=== PATIENT | female | born 1930 | race Caucasian/White ===

== ENCOUNTER 2018-01-10 18:54 | Observation (INO) | payer MEDICARE, BC ==
--- NOTE | 2018-01-10 19:29 | Emergency Department Record ---
History of Present Illness - General Chief Complaint: Abdominal Pain Stated Complaint: ABD PAIN Time Seen by Provider: 01/10/18 19:28 Source: Patient Mode of Arrival: Ambulatory Limitations: No limitations - History of Present Illness Initial Comments: 87 yo female presents with one and a half weeks of abdominal pain in the upper abdomen. The pain is fairly constant. She has been seen twice in the ER at [facility]. She reports she had a normal CT scan. No vomiting or diarrhea. She is being treated for sciatica as well with a new addition of [place]. No blood in the stools. No fever or chest pain. No pain straight through the back. PCP is at [facility]. She was admitted additionally for a TIA work up this week as well for 2 days. She had an MRI at that time for inability to speak. This was short lived and never returned. She has noticed some pain after eating. MD Complaint: Abdominal pain Location: Epigastric Radiation: Epigastric Migration to: Epigastric Severity: Moderate Quality: Aching Consistency: Constant Improves With: Nothing Worsens With: Nothing - Related Data Home Medications Medication Instructions Recorded Confirmed Last Taken Atorvastatin Calcium [Lipitor] 20 mg PO DAILY 01/10/18 01/10/18 Unknown Hydrocodone/Acetaminophen [[place] 1 tab PO Q6H PRN 01/10/18 01/10/18 01/10/18 5mg/325mg] Metoprolol Succinate [Toprol Xl] 50 mg PO DAILY 01/10/18 01/10/18 Unknown Multivitamin [Daily Multiple 1 each PO DAILY 01/10/18 01/10/18 Unknown Vitamin] Warfarin Sodium [Coumadin] 2.5 mg PO DAILY 01/10/18 01/10/18 Unknown Warfarin Sodium [Coumadin] 5 mg PO ASDIR 01/10/18 01/10/18 Unknown Allergies Allergy/AdvReac Type Severity Reaction Status Date / Time aspirin Allergy PT UNSURE Verified 01/10/18 19:24 OF REACTION Penicillins Allergy RASH Verified 01/10/18 19:24 Sulfa (Sulfonamide Allergy RASH Verified 01/10/18 19:24 Antibiotics) Review of Systems Constitutional: Denies: Chills, Fever, Malaise, Weakness Eyes: Denies: Eye discharge ENT: Denies: Congestion, Ear pain, Epistaxis, Throat pain Respiratory: Denies: Cough, Dyspnea, Hemoptysis, Stridor Cardiovascular: Denies: Chest pain, Palpitations, Syncope Endocrine: Denies: Fatigue Gastrointestinal: Reports: As per HPI, Abdominal pain, Constipation, Nausea. Denies: Diarrhea, Hematemesis, Hematochezia, Melena, Vomiting Genitourinary: Denies: Dysuria, Urgency Musculoskeletal: Reports: Back pain (sciatica). Denies: Joint swelling, Myalgia , Neck pain Skin: Denies: Bruising, Change in color, Rash Neurological: Denies: Headache, Numbness, Tremors, Vertigo, Weakness Psychiatric: Denies: Anxiety Hematological/Lymphatic: Denies: Blood Clots, Easy bleeding, Easy bruising, Swollen glands Physical Exam - General General Appearance: Alert, Oriented x3, Cooperative, No acute distress Limitations: No limitations - Head Head exam: Atraumatic, Normal inspection - Eye Eye exam: Normal appearance, PERRL. negative: Conjunctival injection, Periorbital swelling, Scleral icterus - ENT ENT exam: Normal exam, Mucous membranes moist Ear exam: Normal external inspection Nasal Exam: Normal inspection Mouth exam: Normal external inspection Teeth exam: Normal inspection Throat exam: Normal inspection - Neck Neck exam: Normal inspection, Full ROM. negative: Tenderness - Respiratory Respiratory exam: Normal lung sounds bilaterally. negative: Respiratory distress - Cardiovascular Cardiovascular Exam: Regular rate, Normal rhythm, Normal heart sounds - GI/Abdominal GI/Abdominal exam: Soft, Normal bowel sounds, Tenderness (mild tenderness in the epigastric area, soft). negative: Diminished bowel sounds, Distended, Guarding, Hyperactive bowel sounds, Pulsatile mass, Rebound, Rigid - Rectal Rectal exam: Deferred - exam: Deferred - Extremities Extremities exam: Normal inspection, Full ROM, Normal capillary refill. negative: Tenderness - Back Back exam: Reports: Normal inspection, Full ROM. Denies: CVA tenderness (R), CVA tenderness (L), Muscle spasm, Rash noted, Tenderness - Neurological Neurological exam: Alert, Normal gait, Oriented X3 - Psychiatric Psychiatric exam: Normal affect, Normal mood. negative: Agitated, Anxious - Skin Skin exam: Dry, Intact, Normal color, Warm Course - Reevaluation(s) Reevaluation #1: 01/10/18 20:[address] of the abdomen and pelvis were reviewed. She has gallstones otherwise diverticulosis without divertivulitis, L5 compression fracture. 01/10/18 20:30 The CBC was reviewed No acute changes The CMP was normal accept the alk phos was 106. No LFT's and Bili. UA is negative We discussed the CT scan and possible gall bladder as a source for her pain 01/10/18 21:[address] with gall stones and recurrent pain with eating the patient will be placed in observation for US tomorrow. I JONATHAN Smith. He will be available for consultation if needed after the US. Medical Decision Making - Lab Data Result diagrams: 01/10/18 19:50 01/10/18 19:50 Disposition Disposition: Admit Clinical Impression: Gallstones Abdominal pain Qualifiers: Abdominal location: unspecified location Qualified Code(s): R10.9 - Unspecified abdominal pain Disposition: Still a Patient at [facility] Decision to Admit: Admit from ER Decision to Admit Date: 01/10/18 Decision to Admit Time: 22:00 Condition: (2) Stable Time of Disposition: 00:19 Quality - Quality Measures Quality Measures: N/A - Blood Pressure Screening Does Patient Have Any of the Following: Active Dx of HTN Blood Pressure Classification: Hypertensive [place] Systolic Measurement: 149 Diastolic Measurement: 97 Screening for High Blood Pressure: Patient Exclusion, Hx of HTN [[id number]]
[2018-01-10] MEDS ORDERED: SODIUM CHLORIDE 0.9% 500 ML IV ONE (19:43)
[2018-01-10] MEDS ORDERED: PANTOPRAZOLE SODIUM IV 40 MG VIAL IVP ONE (19:43)
[2018-01-10 20:03] LABS: BASO % 0.1 % (0-6); HEMATOCRIT 42.8 % (35.0-47.0); HEMOGLOBIN 14.1 gm/dl (11.6-16.0); LYMPH % 24.9 % (16-45); MEAN CELL VOLUME 94.5 fl (81-97); MEAN CORPUSCULAR HEMOGLOBIN 31.1 pg (27-33); MEAN CORPUSCULAR HGB CONC 32.9 g/dl (32-36); MEAN PLATELET VOLUME 10.4 fl (7.4-10.4); PLATELET COUNT 208 K/uL (130-400); RED BLOOD COUNT 4.53 M/uL (3.80-5.40); RED CELL DISTRIBUTION WIDTH 13.4 % (11.5-14.5); URINE APPEARANCE CLEAR; URINE BILIRUBIN NEGATIVE (NEGATIVE); URINE BLOOD SMALL (NEGATIVE); URINE COLOR YELLOW; URINE GLUCOSE (UA) NEGATIVE (NEGATIVE); URINE KETONE NEGATIVE (NEGATIVE); URINE LEUKOCYTE ESTERASE NEGATIVE (NEGATIVE); URINE NITRITE NEGATIVE (NEGATIVE); URINE PROTEIN NEGATIVE (NEGATIVE); URINE UROBILINOGEN 0.2 E.U./dL (0.20 - 1.00); WHITE BLOOD COUNT W/O DIFF 6.8 K/uL (4.2-12.2)
[2018-01-10 20:13] LABS: URINE BACTERIA RARE; URINE RBC 0 - 2 (NONE SEEN); URINE WBC 0 - 2 (0-2/hpf)
[2018-01-10 20:14] LABS: INR 1.8; PARTIAL THROMBOPLASTIN TIME 39.9 SECONDS (24.5-39.1); PROTHROMBIN TIME (PATIENT) 19.5 SECONDS (9.5-12.1)
[2018-01-10 20:15] LABS: BLOOD UREA NITROGEN 26 mg/dL (8-23); CREATININE 0.9 mg/dL (0.5-0.9); EST GLOMERULAR FILTRATION RATE > 60 mL/min
[2018-01-10 20:18] LABS: GLUCOSE,RANDOM 109 mg/dL (74-109)
[2018-01-10 20:21] LABS: ALB/GLOB RATIO 1.5 (1.1-1.8); ALBUMIN 4.2 g/dL (4.0-5.0); ALKALINE PHOSPHATASE 108 U/L (35-104); ALT/SGPT 21 U/L (<33); AST/SGOT 19 U/L (10.0-35.0); LIPASE 44 U/L (13-60)
[2018-01-10] MEDS ORDERED: ONDANSETRON HCL IV 4 MG/2 ML VIAL IVP PRN (22:37)
[2018-01-10] MEDS ORDERED: MORPHINE SULFATE 5 MG/ML PFS IM PRN (22:37)
[2018-01-10] MEDS ORDERED: 0.9 % SODIUM CHLORIDE 1000ML 1,000 ML IV PRN (22:37)
[2018-01-10] MEDS ORDERED: HYDROCODONE/APAP 5/325MG TABLET PO ONE (22:38)
[2018-01-11] MEDS ORDERED: DIPHENHYDRAMINE HCL 25 MG CAPSULE PO PRN (02:19)
[2018-01-11] MEDS: MORPHINE SULFATE 5 MG/ML PFS IVP PRN ×2 (04:54→11:16)
[2018-01-11 05:10] LABS: URINE APPEARANCE CLEAR; URINE BILIRUBIN NEGATIVE (NEGATIVE); URINE BLOOD TRACE-I (NEGATIVE); URINE COLOR YELLOW; URINE GLUCOSE (UA) NEGATIVE (NEGATIVE); URINE KETONE NEGATIVE (NEGATIVE); URINE LEUKOCYTE ESTERASE NEGATIVE (NEGATIVE); URINE NITRITE NEGATIVE (NEGATIVE); URINE PROTEIN NEGATIVE (NEGATIVE); URINE UROBILINOGEN 0.2 E.U./dL (0.20 - 1.00)
[2018-01-11 05:19] LABS: URINE RBC 0 - 2 (NONE SEEN); URINE WBC 0 - 2 (0-2/hpf)
[2018-01-11 06:20] LABS: BASO % 0.2 % (0-6); GRAN % 58.7 % (47-80); HEMATOCRIT 40.7 % (35.0-47.0); HEMOGLOBIN 13.4 gm/dl (11.6-16.0); LYMPH % 30.1 % (16-45); MEAN CELL VOLUME 94.7 fl (81-97); MEAN CORPUSCULAR HEMOGLOBIN 31.2 pg (27-33); MEAN CORPUSCULAR HGB CONC 32.9 g/dl (32-36); MEAN PLATELET VOLUME 10.2 fl (7.4-10.4); PLATELET COUNT 176 K/uL (130-400); RED CELL DISTRIBUTION WIDTH 13.3 % (11.5-14.5)
[2018-01-11 06:28] LABS: INR 1.9; PROTHROMBIN TIME (PATIENT) 20.4 SECONDS (9.5-12.1)
[2018-01-11 06:37] LABS: ALB/GLOB RATIO 1.3 (1.1-1.8); ALBUMIN 3.5 g/dL (4.0-5.0); ALKALINE PHOSPHATASE 84 U/L (35-104); ALT/SGPT 18 U/L (<33); AST/SGOT 17 U/L (10.0-35.0); BLOOD UREA NITROGEN 20 mg/dL (8-23); CREATININE 0.7 mg/dL (0.5-0.9); EST GLOMERULAR FILTRATION RATE > 60 mL/min; GLUCOSE,RANDOM 91 mg/dL (74-109); TOTAL PROTEIN 6.1 g/dL (6.6-8.7)
--- NOTE | 2018-01-11 07:34 | History & Physical ---
History of Present Illness - Date of Service Date of Service for History & Physical: 01/11/18 - History of Present Illness Admitting Diagnosis: abdominal pain with gallstones History of Present Illness: 87yo female with CC of upper abdominal pain. She has history of Afib anticoagulated on coumadin, hld, gout, TIA, and sciatica. patient presented to our ED with one and a half weeks of upper abdominal pain. She says she had initially gone ot [facility] on 01/02/18 for the pain which she said was unlike anything she had ever felt. She says it seemed to affect the entire upper abdomen and she described it as a constant sharp pain that made her feel nauseated. When she went to the ED at [facility], they gave her a dose of narcan which she says made everything much worse. She had loose stool after that and increased pain. she had a CT scan done at that time that showed cholelithiasis but no other acute process. She was sent home but returned last night because her pain was intolerable. While in our ED, she had temp of 97.9, bp of 149/97 pulse 94, RR of 16 and pulse ox of 94% on RA. WBC count was within normal, CMP showed normal renal function, slight elevation of the alk phos of 108, no elevation of the AST/ALT, lipase within normal. UA was negative for infection. Emergency room physician obtained CT scan from 7 days prior and reviewed. He discussed the case with Dr. Smith, on-call surgery, and he recommended observation to obtain abdominal U/S in the morning. Patient was kept NPO and admitted. 01/11/18- Patient states her pain was much improved following the morphine she received while in the ED. she had return of the pain this morning around 5am. She says it was a 9/10 and was sharp across her entire upper abdomen and made her feel nauseated. She says the pain has resolved since getting another dose of morphine. She takes norco 5/325mg daily for the past 10 years for her sciatica. She denies any vomiting, black stools, or bloody stools. She can't really say if anything exacerbates the pain. I asked about eating and she says she is not sure if that makes her pain worse. She has not tried any otc medications for this. She says she had some carafate at home from a previous diagnosis of stomach ulcer but that didn't seem to affect the pain. She is not too keen on the idea of a GI scope. She was admitted additionally for a TIA work up at [facility] a few months ago. She had an MRI at that time for inability to speak. This was short lived and never returned. [facility] manages her coumadin. pcp: [place] [facility] - Travel/Exposure Within Last 30 Days Have you traveled within the last 30 days?: No - Travel/Exposure Within Last Year Have you traveled outside the [place] in the last year?: No - Additonal Travel Details Have you been exposed to anyone with a communicable illness?: No - Travel Symptoms Symptom Screening: None Review of Systems Constitutional: Denies: Chills, Fever, Malaise, Weakness Eyes: Denies: Eye discharge ENT: Denies: Congestion, Ear pain, Epistaxis, Throat pain Respiratory: Denies: Cough, Dyspnea, Hemoptysis, Stridor Cardiovascular: Denies: Chest pain, Palpitations, Syncope Endocrine: Denies: Fatigue Gastrointestinal: Reports: As per HPI, Abdominal pain, Constipation, Nausea. Denies: Diarrhea, Hematemesis, Hematochezia, Melena, Vomiting Genitourinary: Denies: Dysuria, Urgency Musculoskeletal: Reports: Back pain (sciatica). Denies: Joint swelling, Myalgia , Neck pain Skin: Denies: Bruising, Change in color, Rash Neurological: Denies: Headache, Numbness, Tremors, Vertigo, Weakness Psychiatric: Denies: Anxiety Hematological/Lymphatic: Denies: Blood Clots, Easy bleeding, Easy bruising, Swollen glands Past Medical History - SOCIAL HISTORY Smoking Status: Never smoker Alcohol Use: None Drug Use: None - RESPIRATORY Hx Respiratory Disorders: No - CARDIOVASCULAR Hx Cardio Disorders: Yes Hx Irregular Heartbeat: Yes (Atrial fib) Comment:: high cholesterol - NEURO Hx Neuro Disorders: No - GI Hx GI Disorders: Yes Hx Ulcer: Yes Comment:: Hemorrhoid - Hx Genitourinary Disorders: No - ENDOCRINE Hx Endocrine Disorders: No - MUSCULOSKELETAL Hx Musculoskeletal Disorders: Yes Hx Gout: Yes Comment:: sciatica- in therapy now(12/2017) - PSYCH Hx Psych Problems: No - HEMATOLOGY/ONCOLOGY Hx Hematology/Oncology Disorders: No Family Medical History Any Significant Family History?: Yes Hx Cancer: Mother Hx Heart Disease: Father H&P Meds/Allergies - Allergies Allergies: Allergies Allergy/AdvReac Type Severity Reaction Status Date / Time aspirin Allergy PT UNSURE Verified 01/10/18 19:24 OF REACTION Penicillins Allergy RASH Verified 01/10/18 19:24 Sulfa (Sulfonamide Allergy RASH Verified 01/10/18 19:24 Antibiotics) - Home Medications Home Medications Medication Instructions Recorded Confirmed Last Taken Atorvastatin Calcium [Lipitor] 20 mg PO DAILY 01/10/18 01/10/18 Unknown Hydrocodone/Acetaminophen [[place] 1 tab PO Q6H PRN 01/10/18 01/10/18 01/10/18 5mg/325mg] Metoprolol Succinate [Toprol Xl] 50 mg PO DAILY 01/10/18 01/10/18 Unknown Multivitamin [Daily Multiple 1 each PO DAILY 01/10/18 01/10/18 Unknown Vitamin] Warfarin Sodium [Coumadin] 2.5 mg PO DAILY 01/10/18 01/10/18 Unknown Warfarin Sodium [Coumadin] 5 mg PO ASDIR 01/10/18 01/10/18 Unknown - Active Medications Active Medications: Current Medications Diphenhydramine HCl (Benadryl Capsule) 25 mg PO Q6H PRN PRN Reason: INSOMNIA Last Admin: 01/11/18 02:24 Dose: 25 mg Sodium Chloride () 1,000 mls @ 125 mls/hr IV .Q8H PRN PRN Reason: LARGE VOLUME IV Metoprolol Succinate (Toprol Xl) 50 mg PO DAILY DOMINICK Morphine Sulfate (Morphine Sulfate) 2 mg IVP Q4H PRN PRN Reason: Pain - General Stop: 01/18/18 04:48 Last Admin: 01/11/18 04:54 Dose: 2 mg Ondansetron HCl (Zofran) 4 mg IVP Q4H PRN PRN Reason: NAUSEA Physical Exam - Vital Signs Vital Signs: Vital Signs - Last 24 Hrs Temp Pulse Resp BP Pulse Ox 01/11/18 06:00 98.1 F 90 18 141/71 96 - General General Appearance: Alert, Oriented x3, Cooperative, No acute distress Limitations: No limitations - Head Head exam: Atraumatic, Normal inspection - Eye Eye exam: Normal appearance, PERRL. negative: Conjunctival injection, Periorbital swelling, Scleral icterus - ENT ENT exam: Normal exam, Mucous membranes moist Ear exam: Normal external inspection Nasal Exam: Normal inspection Mouth exam: Normal external inspection Teeth exam: Normal inspection Throat exam: Normal inspection - Neck Neck exam: Normal inspection, Full ROM. negative: Tenderness - Respiratory Respiratory exam: Normal lung sounds bilaterally. negative: Respiratory distress - Cardiovascular Cardiovascular Exam: Normal rhythm, Irregular rhythm - GI/Abdominal GI/Abdominal exam: Soft, Normal bowel sounds, Tenderness (mild tenderness in the epigastric area, soft). negative: Diminished bowel sounds, Distended, Guarding, Hyperactive bowel sounds, Pulsatile mass, Rebound, Rigid - Rectal Rectal exam: Deferred - exam: Deferred - Extremities Extremities exam: Normal inspection, Full ROM, Normal capillary refill. negative: Tenderness - Back Back exam: Reports: Normal inspection, Full ROM. Denies: CVA tenderness (R), CVA tenderness (L), Muscle spasm, Rash noted, Tenderness - Neurological Neurological exam: Alert, Normal gait, Oriented X3 - Psychiatric Psychiatric exam: Normal affect, Normal mood. negative: Agitated, Anxious - Skin Skin exam: Dry, Intact, Normal color, Warm Results - Labs Result Diagrams: 01/11/18 06:05 01/11/18 06:05 Labs Last 24 Hours: Laboratory Results - last 24 hr 01/11/18 01/11/18 01/11/18 05:00 06:05 06:05 WBC 6.0 RBC 4.30 Hgb 13.4 Hct 40.7 MCV 94.7 MCH 31.2 MCHC 32.9 RDW 13.3 Plt Count 176 MPV 10.2 Gran % 58.7 Lymphocytes % 30.1 Monocytes % 10.0 H Eosinophils % 1.0 Basophils % 0.2 PT 20.4 H INR 1.9 Sodium Potassium Chloride Carbon Dioxide Anion Gap BUN Creatinine Estimated GFR Random Glucose Calcium Total Bilirubin AST ALT Alkaline Phosphatase Total Protein Albumin Globulin Albumin/Globulin Ratio Urine Color Yellow Urine Appearance Clear Urine pH 7.0 Ur Specific [place] <= 1.005 Urine Protein Negative Urine Glucose (UA) Negative Urine Ketones Negative Urine Blood Trace-i Urine Nitrite Negative Urine Bilirubin Negative Urine Urobilinogen 0.2 Ur Leukocyte Esterase Negative Urine RBC 0 - 2 Urine WBC 0 - 2 U Non-Squamous Epi Cells 7 - 10 01/11/18 06:05 WBC RBC Hgb Hct MCV MCH MCHC RDW Plt Count MPV Gran % Lymphocytes % Monocytes % Eosinophils % Basophils % PT INR Sodium 142 Potassium 4.3 Chloride 107 Carbon Dioxide 27.0 Anion Gap 8.0 BUN 20 Creatinine 0.7 Estimated GFR > 60 Random Glucose 91 Calcium 8.4 L Total Bilirubin 0.80 AST 17 ALT 18 Alkaline Phosphatase 84 Total Protein 6.1 L Albumin 3.5 L Globulin 2.6 Albumin/Globulin Ratio 1.3 Urine Color Urine Appearance Urine pH Ur Specific [place] Urine Protein Urine Glucose (UA) Urine Ketones Urine Blood Urine Nitrite Urine Bilirubin Urine Urobilinogen Ur Leukocyte Esterase Urine RBC Urine WBC U Non-Squamous Epi Cells VTE H&P Assessment - Risk for VTE Risk for VTE: Yes Risk Level: High Risk Assessment Date: 01/11/18 Risk Assessment Time: 10:18 VTE Orders Placed or Will Be Placed: Yes Plan - Detailed Diagnosis and Plan (1) Abdominal pain Current Visit: Yes Status: Acute Qualifiers: Abdominal location: upper abdomen, unspecified Qualified Code(s): R10.10 - Upper abdominal pain, unspecified Base Code: R10.9 - UNSPECIFIED ABDOMINAL PAIN Comment: 01/11/18- CT scan showing gallstones with no other acute process evident on 01/02/18. Abdominal u/ s completed this morning showing small, gravel sized stones. There was a positive rojas's sign note by agronomy technician, however, no pericholecystic fluid or wall thickening. no ductal dilatation or intra/extrahepatic process evident. -keep npo -vitals q8H -protonix 40mg IV q12H -no GI or surgery here today. earliest HIDA is available here is sunday. Discussed with Dr. Smith and will try and transfer patient to [facility] [place] [place] for GI consult, possibly scope today. -npo -vitals q8H (2) Full code status Current Visit: Yes Status: Acute Base Code: Z78.9 - OTHER SPECIFIED HEALTH STATUS Comment: 01/11/18- patient is full code (3) DVT prophylaxis Current Visit: Yes Status: Acute Base Code: [id number] - Comment: 01/11/18- patient is high risk with afib and age. Anticoagulated with coumadin however INR was 1.8. -add SCDs
--- NOTE | 2018-01-11 09:01 | ULTRASOUND REPORT ---
EXAM: ULTRASOUND OF THE ABDOMEN COMPLETE HISTORY: SUDDEN ONSET OF MID ABDOMINAL PAIN. GALLSTONES. TECHNIQUE: Routine ultrasound examination of the abdomen was obtained. Comparison: None. FINDINGS: The pancreatic tail is obscured by overlying bowel gas. The remainder of the pancreas is visualized and normal in appearance. There is mild diffuse atherosclerosis without aneurysmal dilatation of the abdominal aorta. The inferior vena cava is patent. The liver is homogeneous in echotexture. No focal hepatic mass. No intra or extrahepatic biliary ductal dilatation is seen with the common hepatic duct measuring 4.6 mm. There is echogenic material in the dependent gallbladder body with posterior shadowing suggesting tiny stones. These are not definitely mobile though evaluation for mobility was limited as the patient could not turn onto her left side. No gross gallbladder wall thickening or pericholecystic fluid is seen though there is a reported positive sonographic 's sign. The spleen is not enlarged and is homogeneous in echotexture. Screening evaluation of the kidneys does not demonstrate hydronephrosis. The right kidney measures 10.4 cm in length and the left kidney measures 10.1 cm in length. There is a thin walled anechoic mass with enhanced posterior through transmission within the superior aspect of the left kidney measuring 10 mm. This is likely a cyst. IMPRESSION: 1. SMALL GRAVEL SIZED STONES WITHIN THE DEPENDENT GALLBLADDER FUNDUS. THESE ARE NOT DEFINITELY MOBILE THOUGH EVALUATION FOR MOBILITY WAS LIMITED DUE TO PATIENT CONDITION. THERE IS A POSITIVE SONOGRAPHIC 'S SIGN REPORTED THOUGH NO GALLBLADDER WALL THICKENING OR PERICHOLECYSTIC FLUID. NO BILIARY DUCTAL DILATATION. 2. LEFT RENAL CYSTS. JOB NUMBER: [id number] [facility]
[2018-01-11] MEDS ORDERED: METOPROLOL SUCC 50 MG TABLET PO SCH (10:00)
[2018-01-11] MEDS ORDERED: PANTOPRAZOLE SODIUM IV 40 MG VIAL IVP SCH (10:15)
--- NOTE | 2018-01-11 11:07 | Discharge Summary ---
Providers Discharge Summary Date: 01/11/18 Date of admission: 01/10/18 22:30 Expected Date of Discharge: 01/11/18 Attending physician: NEGAR SAN Primary care physician: Etta STARKS Physical Exam - Vital Signs Vital Signs: Vital Signs - Last 24 Hrs Temp Pulse Resp BP Pulse Ox 01/11/18 09:00 76 18 01/11/18 06:00 98.1 F 90 18 141/71 96 - General General Appearance: Alert, Oriented x3, Cooperative, No acute distress Limitations: No limitations - Head Head exam: Atraumatic, Normal inspection - Eye Eye exam: Normal appearance, PERRL. negative: Conjunctival injection, Periorbital swelling, Scleral icterus - ENT ENT exam: Normal exam, Mucous membranes moist Ear exam: Normal external inspection Nasal Exam: Normal inspection Mouth exam: Normal external inspection Teeth exam: Normal inspection Throat exam: Normal inspection - Neck Neck exam: Normal inspection, Full ROM. negative: Tenderness - Respiratory Respiratory exam: Normal lung sounds bilaterally. negative: Respiratory distress - Cardiovascular Cardiovascular Exam: Normal rhythm, Irregular rhythm - GI/Abdominal GI/Abdominal exam: Soft, Normal bowel sounds, Tenderness (mild tenderness in the epigastric area, soft). negative: Diminished bowel sounds, Distended, Guarding, Hyperactive bowel sounds, Pulsatile mass, Rebound, Rigid - Rectal Rectal exam: Deferred - exam: Deferred - Extremities Extremities exam: Normal inspection, Full ROM, Normal capillary refill. negative: Tenderness - Back Back exam: Reports: Normal inspection, Full ROM. Denies: CVA tenderness (R), CVA tenderness (L), Muscle spasm, Rash noted, Tenderness - Neurological Neurological exam: Alert, Normal gait, Oriented X3 - Psychiatric Psychiatric exam: Normal affect, Normal mood. negative: Agitated, Anxious - Skin Skin exam: Dry, Intact, Normal color, Warm Hospitalization - Hospitalization Admission Diagnosis: abdominal pain with gallstones - Problem List/Discharge Diagnosis (1) Abdominal pain Status: Acute Discharge Diagnosis: Abdominal location: upper abdomen, unspecified Qualified Code(s): R10.10 - Upper abdominal pain, unspecified Base Code: R10.9 - UNSPECIFIED ABDOMINAL PAIN Comment: 01/11/18- CT scan showing gallstones with no other acute process evident on 01/02/18. Abdominal u/ s completed this morning showing small, gravel sized stones. There was a positive rojas's sign noted by exceptional children teacher assistant, however, no pericholecystic fluid or wall thickening. no ductal dilatation or intra/extrahepatic process evident. No GI or surgery here today. earliest HIDA and EGD available here is sunday. Discussed with Dr. Smith and will transfer patient to [facility] for GI consult, possibly scope today. -continue npo. Patient has been NPO since last night -received protonix 40mg IV this morning -[facility] has accepted patient and we will transfer as soon as bed is available for further work up (2) Full code status Status: Acute Base Code: Z78.9 - OTHER SPECIFIED HEALTH STATUS Comment: 01/11- patient is full code (3) DVT prophylaxis Status: Acute Base Code: [id number] - Comment: 01/11/18- patient is high risk with afib and age. Anticoagulated with coumadin however INR was 1.8. -She usually takes her coumadin in the mornings. This was held this morning for possible surgery. -add SCDs - Hospitalization Course Disposition: Acute Care Hospital Transfer Hospital Course: 87yo female with CC of upper abdominal pain. She has history of Afib anticoagulated on coumadin, hld, gout, TIA, and sciatica. patient presented to our ED with one and a half weeks of upper abdominal pain. She says she had initially gone ot [facility] on 01/02/18 for the pain which she said was unlike anything she had ever felt. She says it seemed to affect the entire upper abdomen and she described it as a constant sharp pain that made her feel nauseated. When she went to the ED at [facility], they gave her a dose of narcan which she says made everything much worse. She had loose stool after that and increased pain. she had a CT scan done at that time that showed cholelithiasis but no other acute process. She was sent home but returned last night because her pain was intolerable. While in our ED, she had temp of 97.9, bp of 149/97 pulse 94, RR of 16 and pulse ox of 94% on RA. WBC count was within normal, CMP showed normal renal function, slight elevation of the alk phos of 108, no elevation of the AST/ALT, lipase within normal. UA was negative for infection. Emergency room physician obtained CT scan from 7 days prior and reviewed. He discussed the case with Dr. Smith, on-call surgery, and he recommended observation to obtain abdominal U/S in the morning. Patient was kept NPO and admitted. 01/11/18- Patient states her pain was much improved following the morphine she received while in the ED. she had return of the pain this morning around 5am. She says it was a 9/10 and was sharp across her entire upper abdomen and made her feel nauseated. She says the pain has resolved since getting another dose of morphine. She takes norco 5/325mg daily for the past 10 years for her sciatica. She denies any vomiting, black stools, or bloody stools. She can't really say if anything exacerbates the pain. I asked about eating and she says she is not sure if that makes her pain worse. She has not tried any otc medications for this. She says she had some carafate at home from a previous diagnosis of stomach ulcer but that didn't seem to affect the pain. She is not too keen on the idea of a GI scope. She was admitted additionally for a TIA work up at [facility] a few months ago. She had an MRI at that time for inability to speak. This was short lived and never returned. [facility] manages her coumadin. pcp: [facility] Procedures: Imaging and X-Rays 01/11/18 08:00 ABDOMEN, COMPLETE [US] Stat Abnormal Labs: Abnormal Lab Results 01/11/18 01/11/18 01/11/18 Range/Units 06:05 06:05 06:05 Monocytes % 10.0 H (0-9) % PT 20.4 H (9.5-12.1) SECONDS Calcium 8.4 L (8.8-10.2) mg/dL Total Protein 6.1 L (6.6-8.7) g/dL Albumin 3.5 L (4.0-5.0) g/dL Condition at Discharge: (2) Stable Discharge Medications - Discharge Medications Home Medications: Ambulatory Orders Atorvastatin Calcium [Lipitor] 20 mg PO DAILY 01/10/18 [Last Taken Unknown] Hydrocodone/Acetaminophen [[place] 5mg/325mg] 1 tab PO Q6H PRN 01/10/18 [Last Taken 01/10/18] Metoprolol Succinate [Toprol Xl] 50 mg PO DAILY 01/10/18 [Last Taken Unknown] Multivitamin [Daily Multiple Vitamin] 1 each PO DAILY 01/10/18 [Last Taken Unknown] Warfarin Sodium [Coumadin] 2.5 mg PO DAILY 01/10/18 [Last Taken Unknown] Warfarin Sodium [Coumadin] 5 mg PO ASDIR 01/10/18 [Last Taken Unknown] Discharge Plan - Discharge Instructions Activity at Discharge: Resume Usual Activities As Tolerated Quality Measures - Quality Measures Quality Measures: Advance Directives, Documentation of Current Medications in Medical Record, Elder Maltreatment Screen and Follow-Up Plan, Screening for High Blood Pressure and F/U Documented - Current Medications Quality Measure: Measure #130: Documentation of Current Medications Documentation of Current Medications: <Current Medications Documented/Reviewed> [G8427] - Blood Pressure Screening Quality Measure: Screening for High Blood Pressure and Follow-Up Documented Does Patient Have Any of the Following: Active Dx of HTN Blood Pressure Classification: Hypertensive Reading Systolic Measurement: 149 Diastolic Measurement: 97 Screening for High Blood Pressure: Patient Exclusion, Hx of HTN [G9744] - Advance Directives Quality Measure: Measure #47: Care Plan Advance Directives Established: No Advance Directives Information Provided To Patient: Already Provided Advance Directives on File: No Living Will: Yes Power of Construction Crew Member: Yes Power of Construction Crew Member Name: Aime Riddle Advance Care Planning: <Care Plan/Decision Maker Documented; Discussed & Documented> [1123F] - Elder Abuse Suspicion Index Screening: Elder Abuse Suspicion Index Screening Screening Result: Negative result EASI Reference Information: Usha RAYO, Khadijah C, Marissa D, Cayla Coleman.Development and validation of a tool to assist physicians identification of elder abuse: The Elder Abuse Suspicion Index (EASI ). Journal of Elder Abuse and Neglect, 2008; 20 (3): 276-300. - Elder Maltreatment Screen Quality Measures: Elder Maltreatment Screen and Follow-Up Plan Elder Maltreatment Screen: Patient not Eligible, Screen not documented [G8535] Not Eligible Reasons: Urgent or emergent situation (transfer)
== END 2018-01-11 12:14 | disposition short-term general hospital (02) ==
LOC: ER 18:54 → MEDSURG 22:30
PROVIDERS: ADMIT Internal Medicine; ATTEND Internal Medicine
DX: R10.10 Upper abdominal pain, unspecified (principal); K80.80 Other cholelithiasis without obstruction; I48.91 Unspecified atrial fibrillation; Z79.01 Long term (current) use of anticoagulants; Z51.81 Encounter for therapeutic drug level monitoring; E78.00 Pure hypercholesterolemia, unspecified; M10.9 Gout, unspecified
CPT/HCPCS: 99285 ×2; 96374; 83690; 85025 ×2; 85730; 85610 ×2; 80053 ×2; 81001 ×2; 76700; G0378 ×2; J2270; 99220; C9113

== ENCOUNTER 2018-01-17 04:18 | Emergency (ER) | payer MEDICARE, BC ==
[2018-01-17] MEDS ORDERED: ONDANSETRON HCL IV 4 MG/2 ML VIAL IV ONE (04:52)
[2018-01-17] MEDS ORDERED: SODIUM CHLORIDE 0.9% 500 ML IV ONE (04:52)
[2018-01-17] MEDS ORDERED: MORPHINE SULFATE 5 MG/ML PFS IVP ONE ×2 (04:55→06:06)
--- NOTE | 2018-01-17 04:57 | Emergency Department Record ---
History of Present Illness - General Chief Complaint: Abdominal Pain Stated Complaint: ABDOMINAL PAIN Time Seen by Provider: 01/17/18 04:40 Source: Patient Mode of Arrival: Ambulatory Limitations: No limitations - History of Present Illness Initial Comments: The patient is here due to intermittent upper AP for 5-6 weeks. The pain is sharp and cramping and not associated with food. She has had nausea but no vomiting. The patient denies any fever, chills, constipation, dysuria, CP or SOB. The patient has had multiple ED visits for this same pain and was just admitted here at [facility] a week ago. At that time she had a neg US and was transferred to [facility] [place] consult and was then discharged without having any intervention performed. The patient has had her Appendix removed in the past and a remote TL. Since she was discharged from [facility] 5 days ago she had not experienced the pain until last evening. MD Complaint: Abdominal pain Onset/Timin -: Hour(s) Location: Diffuse, LUQ, RUQ Severity: Moderate Improves With: Nothing Worsens With: Nothing - Related Data LMP (females 10-50): other Patient : No Allergies Allergy/AdvReac Type Severity Reaction Status Date / Time aspirin Allergy PT UNSURE Verified 01/10/18 19:24 OF REACTION Penicillins Allergy RASH Verified 01/10/18 19:24 Sulfa (Sulfonamide Allergy RASH Verified 01/10/18 19:24 Antibiotics) Travel Screening - Travel/Exposure Within Last 30 Days Have you traveled within the last 30 days?: No - Travel/Exposure Within Last Year Have you traveled outside the [place] in the last year?: No - Additonal Travel Details Have you been exposed to anyone with a communicable illness?: No - Travel Symptoms Symptom Screening: None Review of Systems Constitutional: Denies: Chills, Fever Eyes: Denies: Eye discharge ENT: Denies: Congestion Respiratory: Denies: Cough, Dyspnea Past Medical History - SOCIAL HISTORY Smoking Status: Never smoker Alcohol Use: None Drug Use: None - RESPIRATORY Hx Respiratory Disorders: No - CARDIOVASCULAR Hx Cardio Disorders: Yes Hx Irregular Heartbeat: Yes (Atrial fib) Comment:: high cholesterol - NEURO Hx Neuro Disorders: No - GI Hx GI Disorders: Yes Hx Ulcer: Yes Comment:: Hemorrhoid - Hx Genitourinary Disorders: No - ENDOCRINE Hx Endocrine Disorders: No - MUSCULOSKELETAL Hx Musculoskeletal Disorders: Yes Hx Gout: Yes Comment:: sciatica- in therapy now(12/2017) - PSYCH Hx Psych Problems: No - HEMATOLOGY/ONCOLOGY Hx Hematology/Oncology Disorders: No Family Medical History Any Significant Family History?: Yes Hx Cancer: Mother Hx Heart Disease: Father Physical Exam - General General Appearance: Alert, Oriented x3, Cooperative, No acute distress - Head Head exam: Atraumatic, Normocephalic, Normal inspection - Eye Eye exam: Normal appearance, PERRL - Neck Neck exam: Normal inspection, Full ROM. negative: Tenderness - Respiratory Respiratory exam: Normal lung sounds bilaterally. negative: Respiratory distress - Cardiovascular Cardiovascular Exam: Irregular rhythm. negative: Regular rate, Normal rhythm, Systolic murmur - GI/Abdominal GI/Abdominal exam: Soft, Tenderness (There is mild upper Abdominal tenderness.) . negative: Distended, Rebound, Rigid - Extremities Extremities exam: Normal inspection, Full ROM, Normal capillary refill. negative: Tenderness - Neurological Neurological exam: Alert. negative: Motor sensory deficit Course Vital Signs 01/17/18 04:26 Temperature 99.3 F Pulse Rate 117 H Respiratory 20 Rate Blood Pressure 176/79 Pulse Ox 91 L - Reevaluation(s) Reevaluation #1: The patient is doing much better at this time. She is resting comfortably and states her pain has resolved. I did review her records from [facility] last week and she did have an EGD that was normal during her inpatient stay there. She did also have a Gen Surg consult that did not recommend any surgical intervention. 01/17/18 05:36 Reevaluation #2: The patient is doing very well at this time. Her pain has mainly resolved and she has been up multiple times to the bathroom with no difficulty. I did explain to her that the lab results are mainly normal and do not point to any cause for the pain. We will obtain a CT scan and if neg will discharge the patient to home with F/U next week with her PCP. 01/17/18 06:21 Reevaluation #3: The patient is doing well at this time. She did refuse her IV contrast. I did explain to her the CT scan is not as good without the contrast and she really needs it to be sure her vascular system is normal which could be causing her pain. The patient is continuing to refuse the IV contrast. 01/17/18 06:57 Medical Decision Making - Data Complexity MDM Data: Labs Ordered and/or Reviewed, EKG Ordered and/or Reviewed - Lab Data Result diagrams: 01/17/18 04:50 01/17/18 04:50 - EKG Data -: EKG Interpreted by Me (Afib with LBBB.) EKG: Unchanged From Previous (dated 10/26/17) Disposition Disposition: Discharge Clinical Impression: Abdominal pain Qualifiers: Abdominal location: unspecified location Qualified Code(s): R10.9 - Unspecified abdominal pain Disposition: Home, Self-Care Condition: (2) Stable Instructions: Abdominal Pain (ED) Additional Instructions: Please continue your regular medicines. Please see your PCP early next week for recheck and bring the results of your lab work to them. Return to the ER for any worsening symptoms, pain, fever, or vomiting. Forms: Patient Portal Access Time of Disposition: 06:24 Quality - Quality Measures Quality Measures: N/A - Blood Pressure Screening View Details: Yes Does Patient Have Any of the Following: No Blood Pressure Classification: Pre-Hypertensive BP Reading Systolic Measurement: 140 Diastolic Measurement: 82 Screening for High Blood Pressure: < Pre-Hypertensive BP, F/U Documented > [ G8950] Pre-Hypertensive Follow-up Interventions: Referral to alternative/primary care provider.
[2018-01-17 05:07] LABS: URINE APPEARANCE CLEAR; URINE BILIRUBIN NEGATIVE (NEGATIVE); URINE BLOOD SMALL (NEGATIVE); URINE COLOR YELLOW; URINE GLUCOSE (UA) NEGATIVE (NEGATIVE); URINE KETONE NEGATIVE (NEGATIVE); URINE LEUKOCYTE ESTERASE NEGATIVE (NEGATIVE); URINE NITRITE NEGATIVE (NEGATIVE); URINE PROTEIN NEGATIVE (NEGATIVE); URINE UROBILINOGEN 0.2 E.U./dL (0.20 - 1.00)
[2018-01-17 05:09] LABS: BASO % 0.1 % (0-6); EOS % 0.6 % (0-6); GRAN % 75.3 % (47-80); HEMATOCRIT 40.6 % (35.0-47.0); HEMOGLOBIN 13.5 gm/dl (11.6-16.0); MEAN CELL VOLUME 94.4 fl (81-97); MEAN CORPUSCULAR HEMOGLOBIN 31.4 pg (27-33); MEAN CORPUSCULAR HGB CONC 33.3 g/dl (32-36); MEAN PLATELET VOLUME 10.8 fl (7.4-10.4); PLATELET COUNT 172 K/uL (130-400); RED CELL DISTRIBUTION WIDTH 13.2 % (11.5-14.5); WHITE BLOOD COUNT W/O DIFF 7.2 K/uL (4.2-12.2)
[2018-01-17 05:09] LABS: URINE BACTERIA NONE SEEN; URINE EPITHELIAL CELLS 0 - 2 (FEW); URINE WBC 0 - 2 (0-2/hpf)
[2018-01-17 05:19] LABS: PARTIAL THROMBOPLASTIN TIME 41.5 SECONDS (24.5-39.1); PROTHROMBIN TIME (PATIENT) 21.4 SECONDS (9.5-12.1)
[2018-01-17 05:24] LABS: ALBUMIN 3.9 g/dL (4.0-5.0); ALKALINE PHOSPHATASE 87 U/L (35-104); ALT/SGPT 84 U/L (<33)
[2018-01-17 05:25] LABS: AST/SGOT 40 U/L (10.0-35.0); BILIRUBIN,DIRECT < 0.2 mg/dL (0-0.3); BLOOD UREA NITROGEN 14 mg/dL (8-23); CREATINE PHOSPHOKINASE 114 U/L (26-192); CREATININE 0.7 mg/dL (0.5-0.9); EST GLOMERULAR FILTRATION RATE > 60 mL/min; GLUCOSE,RANDOM 119 mg/dL (74-109); LIPASE 17 U/L (13-60)
[2018-01-17 05:26] LABS: CKMB 2.3 ng/mL (<3.77)
--- NOTE | 2018-01-18 10:03 | CT SCAN REPORT ---
EXAM: EMERGENCY CT SCAN OF THE ABDOMEN AND PELVIS WITHOUT CONTRAST HISTORY: UPPER ABDOMINAL PAIN FOR ONE TO TWO MONTHS, WORSE TONIGHT. APPENDECTOMY. TECHNIQUE: Axial CT scan of the abdomen and pelvis was performed without IV contrast at the patient's request. Oral contrast was utilized although only a relatively small amount was given. A preliminary report was provided by [facility]. Comparison: No prior CT with which to compare. Comparison is made with the recent abdomen ultrasound of 01/11/18. FINDINGS: There is a small hiatal hernia present. There are tiny bilateral intrarenal calcifications consistent with bilateral currently nonobstructing intrarenal calculi. No hydronephrosis or hydroureter on either side with no definite ureteral calculus seen on either side and no bladder calculus evident. There is a small amount of tiny hyperdensity in the dependent portion of the gallbladder consistent with the tiny gravel sized stones noted in the gallbladder on the recent abdomen ultrasound of . No diffuse gallbladder wall thickening or adjacent inflammatory type changes are seen. The gallbladder is mildly distended, however. Evaluation of the viscera is limited by the lack of IV contrast. There is a 7 mm low attenuation focus posteriorly in the right lobe of the liver incompletely evaluated without IV contrast, but presumably a tiny hepatic cyst. No definite splenic, adrenal, pancreatic, or renal mass identified. There is moderate diverticulosis in the sigmoid colon. No diverticulitis evident. The appendix is not seen consistent with the surgical history. There is a focus of calcification approximately 1.5 cm in size along the anterior aspect of the uterine fundus consistent with a partially calcified leiomyoma. A very small periumbilical anterior abdominal wall hernia containing adipose tissue, but no bowel. Some interstitial infiltrate in the right base and minimally in the left base may represent some basilar fibrosis. No free intraperitoneal air or free intraperitoneal fluid evident. Multilevel degenerative disk disease in the lumbar spine. There is mild to moderate compression of the superior end plate of the body of L5. This is presumably chronic although old films would be useful to confirm. There is a lumbar levoscoliosis as well. IMPRESSION: 1. APPARENT TINY GALLSTONES WITHIN THE DEPENDENT PORTION OF THE GALLBLADDER. MILD GALLBLADDER DISTENTION, BUT NO ACTUAL PERICHOLECYSTIC INFLAMMATORY TYPE CHANGE IS SEEN. 2. BILATERAL CURRENTLY NONOBSTRUCTING INTRARENAL CALCULI. 3. PROBABLE TINY HEPATIC CYST. 4. SMALL HIATAL HERNIA AND SMALL PERIUMBILICAL ANTERIOR ABDOMINAL WALL HERNIA CONTAINING ADIPOSE TISSUE, BUT NO BOWEL. 5. MODERATE DIVERTICULOSIS SIGMOID COLON, BUT NO DIVERTICULITIS EVIDENT. 6. POSTOP APPENDECTOMY. 7. APPARENT SMALL PARTIALLY CALCIFIED UTERINE LEIOMYOMA APPROXIMATELY 1.5 CM IN SIZE. 8. COMPRESSION OF THE SUPERIOR END PLATE OF THE BODY OF L5, PRESUMABLY CHRONIC ALTHOUGH OLD FILMS WOULD BE USEFUL TO CONFIRM. MULTILEVEL DEGENERATIVE CHANGE IN THE SPINE WITH LUMBAR LEVOSCOLIOSIS WELL. JOB NUMBER: [id number] [facility]
== END 2018-01-17 08:06 | disposition home or self-care (01) ==
LOC: ER 04:18
DX: R10.10 Upper abdominal pain, unspecified (principal); R11.0 Nausea; I44.7 Left bundle-branch block, unspecified; I48.91 Unspecified atrial fibrillation
CPT/HCPCS: 99284 ×2; 96376; 96374; 96375; 82550; 83605; 83690; 85025; 85730; 85610; 80076; 82553; 80048; 81001; 84484; 74176; 93005; 93010; J2405; J2270